=== PATIENT | female | born 1935 ===

== ENCOUNTER 2016-12-03 16:28 | Inpatient (IN) | payer MEDICAID, OTHER ==
[2016-12-03 16:41] VITALS: BMI 18.8
--- NOTE | 2016-12-03 16:51 | ED PDOC ---
Arrival/HPI - General Time Seen by Provider: 12/03/16 16:42 Historian: Patient - History of Present Illness Narrative History of Present Illness (Text): 12/03/16 16:42 81 y/o female, pmh including dm, nkda, bib daughter c/o rt. ankle wound which has not been healing for the past 3 weeks. Pt. stated that she had a varicose being which she was picked on abut couple months ago on the rt. ankle, healing well but she pick on it again about 3 weeks ago, not healing well, noticed more redness on the surrounding, no fever or chills, no night sweat, no dizziness, no other medical or psychological complaints. Past Medical History - Provider Review Nursing Documentation Reviewed: Yes - Tetanus Immunization Tetanus Immunization: Up to Date - Cardiac Hx Hypertension: Yes - Psychiatric Hx Depression: No Hx Emotional Abuse: No Hx Physical Abuse: No Hx Substance Use: No - Suicidal Assessment Feels Threatened In Home Enviroment: No Family/Social History - Physician Review Nursing Documentation Reviewed: Yes Family/Social History: Unknown Family HX Hx Alcohol Use: No Hx Substance Use: No Hx Substance Use Treatment: No Allergies/Home Meds Allergies/Adverse Reactions: Allergies No Known Allergies Allergy (Verified 12/03/16 16:43) Home Medications: Home Meds Medication Instructions Recorded Confirmed Insulin Detemir [Levemir] 12 units SC HS 12/03/16 12/03/16 Review of Systems - Review of Systems Constitutional: absent: Fatigue, Fevers Eyes: absent: Vision Changes ENT: absent: Hearing Changes Respiratory: absent: SOB, Cough Cardiovascular: absent: Chest Pain Gastrointestinal: absent: Abdominal Pain, Nausea, Vomiting Musculoskeletal: Arthralgias. absent: Back Pain, Neck Pain, Joint Swelling Skin: Rash, Skin Lesions, Cellulitis. absent: Pruritis, Laceration, Abscess, Ulcer Neurological: absent: Headache, Dizziness Physical Exam Vital Signs Reviewed: Yes Vital Signs Temp Pulse Resp BP Pulse Ox 12/03/16 21:09 98.5 F 78 17 148/85 98 12/03/16 20:31 98.8 F 78 17 143/74 96 12/03/16 16:40 98.8 F 84 19 175/83 H 97 Temperature: Afebrile Blood Pressure: Hypertensive Pulse: Regular Respiratory Rate: Normal Appearance: Positive for: Well-Appearing, Non-Toxic, Comfortable Pain Distress: Mild Mental Status: Positive for: Alert and Oriented X 3 - Systems Exam Head: Present: Atraumatic, Normocephalic Pupils: Present: PERRL Extroacular Muscles: Present: EOMI Conjunctiva: Present: Normal Mouth: Present: Moist Mucous Membranes Neck: Present: Normal Range of Motion Respiratory/Chest: Present: Clear to Auscultation, Good Air Exchange. No: Respiratory Distress, Accessory Muscle Use Cardiovascular: Present: Regular Rate and Rhythm, Normal S1, S2. No: Murmurs Abdomen: Present: Normal Bowel Sounds. No: Tenderness, Distention, Peritoneal Signs Back: Present: Normal Inspection Upper Extremity: Present: Normal Inspection. No: Cyanosis, Edema Lower Extremity: Present: Normal Inspection, Other (RLE: medial aspect of the ankle visible stage III pressure ulcer approx. [id number] noted with erythematous noted surrounding with early signs of cellulitis noted streaking up to the calf region, negative donovan and ramsey signs, FROM without limitation, sensation intact, motor 5/5, +DPPT pulses, capillary refill< 2 seconds, neurovascular intact. ). No: Edema Neurological: Present: GCS=15, CN II-XII Intact, Speech Normal Skin: Present: Warm, Dry, Normal Color. No: Rashes Psychiatric: Present: Alert, Oriented x 3, Normal Insight, Normal Concentration Medical Decision Making ED Course and Treatment: 12/03/16 16:57 -labs -LLE venuous doppler -lt. ankle xray 12/03/16 19:28 -labs are non-significant except glucose 310, insulin 6 units IV ordered. -RLE Venuous doppler: as per preliminary report, no acute DVT -Chest x-ray: no active disease -Rt. ankle xray: no osteolytic changes. -wound culture obtained by me. Ulcer irrigated by saline, clean with betadine, xerofoam and gauze dressing by me. -Pt. has no pmd and no follow up, poorly wound ankle ulcer and now it's infected , will need to be admitted. -Case discussed with Dr. Juan, agreed on the admission. -cco & president and the hospitalist paged. 12/03/16 19:39 -I spoke to the medical administrative technician and Dr. Ramos, discussed about the case/labs/ radiology result, agreed on the admission and follow up on the patient. -Pt. agreed to be admitted. - Lab Interpretations Microbiology Results: Microbiology Results 12/03/16 18:55 Ankle - Right Wound Culture - Preliminary NO GROWTH AFTER 24 HOURS 12/03/16 17:15 Blood-Venous Blood Culture - Preliminary NO GROWTH AFTER 24 HOURS 12/03/16 17:15 Blood-Venous Blood Culture - Preliminary NO GROWTH AFTER 24 HOURS Lab Results: 12/03/16 17:00 12/03/16 17:15 Lab Results 12/03/16 17:15: Sodium 140, Potassium 4.6, Chloride 99, Carbon Dioxide 29, Anion Gap 17, BUN 11, Creatinine 0.7, Est GFR ( Amer) > 60, Est GFR (Non- Af Amer) > 60, Random Glucose 310 H*, Calcium 10.2, Total Bilirubin 0.4, AST 18 , ALT 22, Alkaline Phosphatase 106, Total Protein 7.5, Albumin 4.4, Globulin 3.1 , Albumin/Globulin Ratio 1.4 12/03/16 17:00: WBC 6.1, RBC 4.50, Hgb 13.2, Hct 38.2, MCV 84.9, MCH 29.3, MCHC 34.6, RDW 12.9, Plt Count 241, MPV 10.9, Gran % 53.9, Lymph % (Auto) 34.9, Potter % (Auto) 9.1 H, Eos % (Auto) 1.8, Baso % (Auto) 0.3, Gran # 3.31, Lymph # 2.1, Potter # 0.6, Eos # 0.1, Baso # 0.02 Interpretation: Abnormal lab values (glucose 310) - RAD Interpretation Radiology Orders: 12/03/16 16:51 ANKLE RIGHT 3 VIEWS ROUTINE [RAD] Stat DUPLEX LOWER EXTRM VEIN RIGHT [US] Stat 12/03/16 16:58 CHEST ONE VIEW [RAD] Stat Chest xray: no infiltrate/effusion/pneumothorax Rt. ankle xray: visible lucency around the rt. ankle, +ostepenia appearance RLE Venuous doppler: as per preliminary report, no acute dvt. Facilities Officer: Radiologist - Medication Orders Current Medication Orders: Heparin Sodium (Porcine) (Heparin) 5,000 units SC Q12 CARYN PRN Reason: Protocol Last Admin: 12/04/16 21:50 Dose: 5,000 units Subcutaneous Administrations Document 12/04/16 21:50 BR (Rec: 12/05/16 01:15 [id number]) Charges for Administration # of Subcutaneous Administrations 1 Vancomycin HCl (Vancomycin 1gm) 1 gm in 250 mls @ 167 mls/hr IVPB Q12 CARYN PRN Reason: Protocol Last Admin: 12/04/16 21:50 Dose: 167 mls/hr eMAR Start Stop Document 12/04/16 21:50 BR (Rec: 12/05/16 01:17 [id number]) Intravenous Solution Start Date 12/05/16 Start Time 21:50 End Date 12/05/16 End time 23:20 Total Infusion Time 90 Ampicillin Sodium/Sulbactam Sodium (Unasyn 1 Gm-0.5 Gm) 1 gm in 100 mls @ 100 mls/hr IVPB Q6 CARYN PRN Reason: Protocol Last Admin: 12/05/16 06:20 Dose: 100 mls/hr eMAR Start Stop Document 12/05/16 06:20 BR (Rec: 12/05/16 06:20 [id number]) Intravenous Solution Start Date 12/05/16 Start Time 06:20 End Date 12/05/16 End time 07:20 Total Infusion Time 60 Insulin Detemir (Levemir) 12 unit SC HS CARYN Last Admin: 12/04/16 21:50 Dose: 12 unit MAR Blood Glucose Document 12/04/16 21:50 BR (Rec: 12/05/16 01:16 [id number]) Blood Glucose Finger Stick Blood Glucose (70-120) 255 Subcutaneous Administrations Document 12/04/16 21:50 BR (Rec: 12/05/16 01:16 [id number]) Charges for Administration # of Subcutaneous Administrations 1 Insulin Human Regular (Humulin R Med) 0 units SC ACHS CARYN PRN Reason: Protocol Last Admin: 12/04/16 21:50 Dose: Not Given Non-Admin Reason: Blood Sugar Parameter MAR Blood Glucose Document 12/04/16 21:50 BR (Rec: 12/05/16 01:16 [id number]) Blood Glucose Finger Stick Blood Glucose (70-120) 255 Discontinued Medications Hydralazine HCl (Apresoline) 10 mg IVP ONCE ONE Stop: 12/04/16 07:55 Last Admin: 12/04/16 08:32 Dose: 10 mg IVP Administration Document 12/04/16 08:32 TW (Rec: 12/04/16 08:32 TW [id number]) Charges for Administration # of IVP Administrations 1 MAR Pulse and Blood Pressure Document 12/04/16 08:32 TW (Rec: 12/04/16 08:32 TW [id number]) Pulse Pulse Rate (60-90) 88 Blood Pressure Blood Pressure (100/60-150/90) 140/80 Vancomycin HCl (Vancomycin 1gm) 1 gm in 250 mls @ 167 mls/hr IVPB STAT STA PRN Reason: Protocol Stop: 12/03/16 20:10 Last Admin: 12/03/16 19:30 Dose: 167 mls/hr eMAR Start Stop Document 12/03/16 19:30 IT (Rec: 12/03/16 19:34 IT [id number]) Intravenous Solution Start Date 12/03/16 Start Time 19:33 End Date 12/03/16 End time 21:05 Total Infusion Time 92 Piperacillin Sod/Tazobactam Sod (Zosyn 3.375 In Ns 100ml) 100 mls @ 200 mls/hr IVPB STAT STA PRN Reason: Protocol Stop: 12/03/16 19:10 Last Admin: 12/03/16 18:53 Dose: 200 mls/hr eMAR Start Stop Document 12/03/16 18:53 IT (Rec: 12/03/16 18:56 IT [id number]) Intravenous Solution Start Date 12/03/16 Start Time 18:56 End Date 12/03/16 End time 19:20 Total Infusion Time 24 Vancomycin HCl (Vancomycin 1gm) 1 gm in 250 mls @ 167 mls/hr IVPB DAILY CARYN PRN Reason: Protocol Piperacillin Sod/Tazobactam Sod (Zosyn 3.375 In Ns 100ml) 100 mls @ 200 mls/hr IVPB Q6 CARYN PRN Reason: Protocol Stop: 12/04/16 06:29 Last Admin: 12/04/16 06:30 Dose: 200 mls/hr eMAR Start Stop Document 12/04/16 06:30 KT (Rec: 12/04/16 06:30 KT [id number]) Intravenous Solution Start Date 12/04/16 Start Time 06:30 End Date 12/04/16 End time 07:00 Total Infusion Time 30 Insulin Human Regular (Humulin R) 6 units IV STAT STA Stop: 12/03/16 18:04 Last Admin: 12/03/16 18:12 Dose: 6 units eMAR Start Stop Document 12/03/16 18:12 IT (Rec: 12/03/16 18:13 IT [id number]) Intravenous Solution Start Date 12/03/16 Start Time 18:13 End Date 12/03/16 - PA / STEP DOWN NURSE / Resident Statement / has reviewed & agrees with the documentation as recorded. Disposition/Present on Arrival - Present on Arrival Any Indicators Present on Arrival: No History of DVT/PE: No History of Uncontrolled Diabetes: No Urinary Catheter: No History of Decub. 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
[2016-12-03 17:45] LABS: BASO # 0.02 K/mm3 (0.0-2.0); BASO % 0.3 % (0.0-3.0); EOS # 0.1 (0.0-0.7); EOS % 1.8 % (1.5-5.0); GRAN # 3.31 (1.4-6.5); GRAN % 53.9 % (50.0-68.0); HEMATOCRIT 38.2 % (36.0-48.0); LYMPH # 2.1 (1.2-3.4); LYMPH % 34.9 % (22.0-35.0); MEAN CELL VOLUME 84.9 fl (80.0-105.0); MEAN CORPUSCULAR HEMOGLOBIN 29.3 pg (25.0-35.0); MEAN CORPUSCULAR HGB CONC 34.6 g/dl (31.0-37.0); MEAN PLATELET VOLUME 10.9 fl (7.0-11.0); MONO # 0.6 (0.1-0.6); MONO % 9.1 % (1.0-6.0); RED CELL DISTRIBUTION WIDTH 12.9 % (11.5-14.5); WHITE BLOOD COUNT 6.1 10^3/ul (4.5-11.0)
[2016-12-03 17:48] LABS: ALB/GLOB RATIO 1.4 (1.1-1.8); ALKALINE PHOSPHATASE 106 U/L (38-126); ALT/SGPT 22 U/L (7-56); AST/SGOT 18 U/L (14-36); BILIRUBIN,TOTAL 0.4 mg/dL (0.2-1.3); BLOOD UREA NITROGEN 11 mg/dL (7-21); CALCIUM 10.2 mg/dL (8.4-10.5); CARBON DIOXIDE 29 mmol/L (21-33); CHLORIDE 99 mmol/L (98-107); GFR AFRICAN-AMERICAN > 60; POTASSIUM 4.6 mmol/L (3.6-5.0); SODIUM 140 mmol/L (132-148); TOTAL PROTEIN 7.5 g/dL (5.8-8.3)
[2016-12-03 17:54] LABS: GLUCOSE,RANDOM 310 mg/dL (70-110)
[2016-12-03] MEDS ORDERED: Insulin Regular 1 UNITS/0.01 ML ML IV STA (18:03)
--- NOTE | 2016-12-03 18:36 | US ---
PROCEDURE: Right lower extremity venous US HISTORY: Leg pain and swelling. Evaluate for DVT. PHYSICIAN(S): Gokul Vargas M.D. TECHNIQUE: Duplex sonography and color-flow Doppler with graded compression were used to evaluate the deep venous system of the right lower extremity. FINDINGS: The visualized deep venous system of the right lower extremity is sonographically normal and compressible. Normal waveforms and augmentation are seen. There is no sonographic evidence for deep venous thrombosis in the visualized segments of the right lower extremity. IMPRESSION: 1. No sonographic evidence for deep venous thrombosis in the visualized segments of the right lower extremity.
[2016-12-03] MEDS ORDERED: Piperacillin/Tazobact 3.375 gm 100 ML IVPB STA (18:41)
[2016-12-03] MEDS ORDERED: Vancomycin 1gm in NS 250ml 1 GM/250 ML BAG IVPB STA (18:41)
[2016-12-04] MEDS: Piperacillin/Tazobact 3.375 gm 100 ML IVPB SCH ×2 (01:19→06:30)
--- NOTE | 2016-12-04 04:33 | CP.PCM.HP ---
<Tima Garcia - Last Filed: 12/04/16 04:44> History of Present Illness - History of Present Illness History of Present Illness: Chief Complaint Right Medial Malleolus ulcer HPI Patient is an 81 year old female visiting from the [place] with a past medical history of IDDM on 12 IU Levemir qD who [place] [facility] [place] with complaints of right sided medial malleolus which has been present since 06/2016. Patient states she was following up with her physician in her country regarding the wound. With time the wound would heal however according to patients family, she has a habit of picking at the scabs of the wound whenever the wound is not covered. Patient states that the wound with time increased in diameter and depth in the past 15 days. She admits to pain in the surrounding area but not at the wound directly. She denies pain radiation, n/v/f /c, shortness of breath, chest pain. PMD: does not have in [place] Allergies: NKDA SHx: None Present on Admission - Present on Admission Any Indicators Present on Admission: No Review of Systems - Review of Systems Systems not reviewed;Unavailable: Acuity of Condition - Constitutional Constitutional: absent: Anorexia, Chills, Fever, Headache, Weight Loss - EENT Eyes: absent: Blurred Vision, Change in Vision - Cardiovascular Cardiovascular: absent: Chest Pain, Dyspnea - Respiratory Respiratory: absent: Cough, Dyspnea - Gastrointestinal Gastrointestinal: absent: Abdominal Pain, Nausea, Vomiting - Genitourinary Genitourinary: absent: Difficulty Urinating, Dysuria - Neurological Neurological: absent: Dizziness, Headaches - Psychiatric Psychiatric: absent: Anxiety, Confusion - Endocrine Endocrine: absent: Fatigue Past Patient History - Infectious Disease Hx of Infectious Diseases: None - Tetanus Immunizations Tetanus Immunization: Up to Date - Past Social History Smoking Status: Never Smoked - CARDIAC Hx Hypertension: Yes - PULMONARY Hx Respiratory Disorders: No - NEUROLOGICAL Hx Neurological Disorder: No - HEENT Hx HEENT Problems: No - RENAL Hx Chronic Kidney Disease: No - ENDOCRINE/METABOLIC Hx Endocrine Disorders: Yes Hx Diabetes Mellitus Type 2: Yes - HEMATOLOGICAL/ONCOLOGICAL Hx Blood Disorders: No - INTEGUMENTARY Hx Melanoma: No - MUSCULOSKELETAL/RHEUMATOLOGICAL Hx Rheumatoid Arthritis: No - GASTROINTESTINAL Hx Fatty Liver Disease: No - GENITOURINARY/GYNECOLOGICAL Hx Bladder Cancer: No - PSYCHIATRIC Hx Depression: No Hx Emotional Abuse: No Hx Physical Abuse: No Hx Substance Use: No - SURGICAL HISTORY Hx Herniorrhaphy: No - ANESTHESIA Hx Anesthesia: No Meds Allergies/Adverse Reactions: Allergies Allergy/AdvReac Type Severity Reaction Status Date / Time No Known Allergies Allergy Verified 12/03/16 16:43 Physical Exam - Constitutional Appears: Well - Head Exam Head Exam: ATRAUMATIC, NORMAL INSPECTION, NORMOCEPHALIC - Eye Exam Eye Exam: EOMI, Normal appearance - ENT Exam ENT Exam: Mucous Membranes Moist, Normal Exam - Neck Exam Neck exam: Positive for: Normal Inspection - Respiratory Exam Respiratory Exam: Clear to Auscultation Bilateral, NORMAL BREATHING PATTERN - Cardiovascular Exam Cardiovascular Exam: REGULAR RHYTHM, +S1, +S2 - GI/Abdominal Exam GI & Abdominal Exam: Normal Bowel Sounds, Soft - Extremities Exam Additional comments: RLE: medial aspect of the ankle visible stage III pressure ulcer approx. 4x3cm, FROM without limitation, sensation intact, motor 5/5, +DPPT pulses - Skin Skin Exam: Erythema, Warm Results - Vital Signs Recent Vital Signs: Last Vital Signs Temp 98.2 F 12/04/16 00:05 Pulse 74 12/04/16 00:05 Resp 20 12/04/16 00:05 BP 137/74 12/04/16 00:05 Pulse Ox 97 12/04/16 00:05 - Labs Result Diagrams: 12/03/16 17:00 12/03/16 17:15 Labs: Laboratory Results - last 24 hr 12/03/16 12/04/16 21:35 02:03 POC Glucose (mg/dL) 201 H 194 H Assessment & Plan - Assessment and Plan (Free Text) Plan: Assessment 81 year old female with cellulitus of right medial malleolus Plan 1. Cellulitus - Vancomycin 1 gm - Zosyn 3.375 gm - Blood and Wound culture results pending - Ankle X-Ray- results pending - Right LE venous Doppler- negative for DVT - Podiatry consult - Wound assessment 2. IDDM - Insulin Reg Med SC - Levemir 12 IU ACHS - Carb Controlled Diet DVT prophylaxis -Heparin 5000 IU q12 <Ana Ramos - Last Filed: 12/04/16 06:30> Results - Vital Signs Recent Vital Signs: Last Vital Signs Temp 98.2 F 12/04/16 00:05 Pulse 74 12/04/16 00:05 Resp 20 12/04/16 00:05 BP 137/74 12/04/16 00:05 Pulse Ox 97 12/04/16 00:05 - Labs Result Diagrams: 12/03/16 17:00 12/03/16 17:15 Labs: Laboratory Results - last 24 hr 12/03/16 12/04/16 21:35 02:03 POC Glucose (mg/dL) 201 H 194 H Attending/Attestation - Attestation I have personally seen and examined this patient.: Yes I have fully participated in the care of the patient.: Yes I have reviewed all pertinent clinical information: Yes Notes (Text): 12/04/16 06:30 agree with history, physical examination, assessment and plan.
--- NOTE | 2016-12-04 07:38 | RAD ---
PROCEDURE: Right Ankle Radiographs. HISTORY: rt. ankle medial wound x 1 month COMPARISON: None FINDINGS: BONES: Diffuse osteopenia suggests osteoporosis. No periosteal reaction or bone lysis is identified including at the level of the apparent medial upper right ankle soft tissue ulceration. Diffuse opacity is cyst is seen in the local soft tissues relative to this lucent defect. JOINTS: Normal. Mild osteoarthritis. Ankle mortise maintained. Talar dome intact SOFT TISSUES: Normal. OTHER FINDINGS: None. IMPRESSION: 1. A lucent defect seen in the medial upper right ankle soft tissues suggestive of an ulcer. No local bony changes are seen corresponding to this finding. MRI is available follow-up if clinically warranted, which is more sensitive for osteomyelitis. 2. Diffuse osteopenia suggests osteoporosis. Limited degenerate joint change appreciate without fracture, subluxation or dislocation.
--- NOTE | 2016-12-04 07:40 | RAD ---
PROCEDURE: CHEST RADIOGRAPH, 1 VIEW HISTORY: medical clearance COMPARISON: None available. FINDINGS: LUNGS: No acute airspace disease appreciate bilaterally. Reticular markings somewhat increased at the bases bilaterally which appear nonspecific. This may be related bronchovascular overlap from sub optimal inspiratory volume. PLEURA: No pneumothorax or pleural fluid seen. CARDIOVASCULAR: Normal. OSSEOUS STRUCTURES: No significant abnormalities. VISUALIZED UPPER ABDOMEN: Normal. OTHER FINDINGS: None. IMPRESSION: No acute alveolar infiltrate pleural effusion or pneumothorax identified.
[2016-12-04] MEDS: Insulin Reg-MEDIUM-Coverage SC SCH ×4 (08:32→21:50)
--- NOTE | 2016-12-04 09:13 | CARD ---
APPROVED REPORT EKG Measurement Heart [id number] 150P12 [id number] <Conclusion> Normal sinus rhythm LAD Mildly Prolonged QTc
[2016-12-04 09:25] LABS: BASO # 0.03 K/mm3 (0.0-2.0); BASO % 0.5 % (0.0-3.0); EOS # 0.1 (0.0-0.7); EOS % 1.1 % (1.5-5.0); GRAN # 3.85 (1.4-6.5); GRAN % 61.5 % (50.0-68.0); HEMATOCRIT 38.6 % (36.0-48.0); LYMPH # 1.8 (1.2-3.4); LYMPH % 28.9 % (22.0-35.0); MEAN CELL VOLUME 84.1 fl (80.0-105.0); MEAN CORPUSCULAR HEMOGLOBIN 29.6 pg (25.0-35.0); MEAN CORPUSCULAR HGB CONC 35.2 g/dl (31.0-37.0); MEAN PLATELET VOLUME 10.2 fl (7.0-11.0); MONO # 0.5 (0.1-0.6); RED CELL DISTRIBUTION WIDTH 12.8 % (11.5-14.5); WHITE BLOOD COUNT 6.3 10^3/ul (4.5-11.0)
[2016-12-04 09:37] LABS: ALB/GLOB RATIO 1.3 (1.1-1.8); ALKALINE PHOSPHATASE 82 U/L (38-126); ALT/SGPT 19 U/L (7-56); AST/SGOT 20 U/L (14-36); BILIRUBIN,TOTAL 0.7 mg/dL (0.2-1.3); BLOOD UREA NITROGEN 10 mg/dL (7-21); CALCIUM 9.7 mg/dL (8.4-10.5); CARBON DIOXIDE 26 mmol/L (21-33); CHLORIDE 103 mmol/L (98-107); GFR AFRICAN-AMERICAN > 60; GLUCOSE,RANDOM 260 mg/dL (70-110); SODIUM 141 mmol/L (132-148); TOTAL PROTEIN 7.4 g/dL (5.8-8.3)
[2016-12-04] MEDS ORDERED: Vancomycin 1gm in NS 250ml 1 GM/250 ML BAG IVPB SCH (10:00)
[2016-12-04] MEDS: Vancomycin 1gm in NS 250ml 1 GM/250 ML BAG IVPB SCH ×2 (10:30→21:50)
--- NOTE | 2016-12-04 14:47 | CP.PCM.CON ---
History of Present Illness - History of Present Illness History of Present Illness: 81 year old female with PMH of DM was brought in to [facility] because of worsening ulcer on her right malleolar area. She apparently has had this ulcer for many years, at times it would heal up, then get worse again. She comes from the [place] and has been here in the [place] since [place]. She would have a habit of picking on the ulcer with her fingers and fingernails. She denies soaking her feet in water, has occasional contacts with dogs, no fever or chills, no nausea or vomiting, no chest pain, no SOB, no headache or dizziness, no diarrhea, no dysuria. Infectious Diseases consult is requested to further evaluate and manage. Review of Systems - Review of Systems All systems: reviewed and no additional remarkable complaints except (as per HPI ) Past Patient History - Infectious Disease Hx of Infectious Diseases: None - Tetanus Immunizations Tetanus Immunization: Up to Date - Past Social History Smoking Status: Never Smoked - CARDIAC Hx Hypertension: Yes - PULMONARY Hx Respiratory Disorders: No - NEUROLOGICAL Hx Neurological Disorder: No - HEENT Hx HEENT Problems: No - RENAL Hx Chronic Kidney Disease: No - ENDOCRINE/METABOLIC Hx Endocrine Disorders: Yes Hx Diabetes Mellitus Type 2: Yes - HEMATOLOGICAL/ONCOLOGICAL Hx Blood Disorders: No - INTEGUMENTARY Hx Melanoma: No - MUSCULOSKELETAL/RHEUMATOLOGICAL Hx Rheumatoid Arthritis: No - GASTROINTESTINAL Hx Fatty Liver Disease: No - GENITOURINARY/GYNECOLOGICAL Hx Bladder Cancer: No - PSYCHIATRIC Hx Depression: No Hx Emotional Abuse: No Hx Physical Abuse: No Hx Substance Use: No - SURGICAL HISTORY Hx Herniorrhaphy: No - ANESTHESIA Hx Anesthesia: No Meds Allergies/Adverse Reactions: Allergies Allergy/AdvReac Type Severity Reaction Status Date / Time No Known Allergies Allergy Verified 12/03/16 16:43 - Medications Medications: Current Medications Heparin Sodium (Porcine) (Heparin) 5,000 units SC Q12 CARYN PRN Reason: Protocol Vancomycin HCl (Vancomycin 1gm) 1 gm in 250 mls @ 167 mls/hr IVPB DAILY CARYN PRN Reason: Protocol Insulin Detemir (Levemir) 12 unit SC HS CARYN Insulin Human Regular (Humulin R Med) 0 units SC ACHS CARYN PRN Reason: Protocol Last Admin: 12/04/16 08:32 Dose: 1 units Physical Exam - Constitutional Appears: Non-toxic, No Acute Distress - Head Exam Head Exam: NORMAL INSPECTION - ENT Exam ENT Exam: Mucous Membranes Moist - Neck Exam Neck exam: Negative for: Lymphadenopathy, Meningismus - Respiratory Exam Respiratory Exam: Decreased Breath Sounds - Cardiovascular Exam Cardiovascular Exam: +S1, +S2 - GI/Abdominal Exam GI & Abdominal Exam: Soft. absent: Tenderness - Extremities Exam Additional comments: right medial malleolar area with open ulcer with serosanguinous material Results - Vital Signs Recent Vital Signs: Last Vital Signs Temp 98.8 F 12/04/16 07:30 Pulse 88 12/04/16 08:32 Resp 20 12/04/16 07:30 BP 140/80 12/04/16 08:32 Pulse Ox 97 12/04/16 07:30 - Labs Result Diagrams: 12/04/16 08:35 12/04/16 08:35 Labs: Laboratory Results - last 24 hr 12/03/16 12/04/16 12/04/16 21:35 02:03 07:17 POC Glucose (mg/dL) 201 H 194 H 197 H Assessment & Plan - Assessment and Plan (Free Text) Plan: Assessment Right medial malleolar infected diabetic ulcer R/O osteomyelitis DM Plan started patient on Vancomycin and Unasyn pending blood and wound cx; follow up ESR, CRP, GLADYS's, MRI of the right foot follow up Podiatry evaluation and recommendations will monitor clinically
--- NOTE | 2016-12-04 18:27 | US ---
PROCEDURE: Lower extremity GLADYS exam HISTORY: Peripheral vascular disease with pain and right ankle ulceration PHYSICIAN(S): Gokul Vargas MD. FINDINGS: The resting GLADYS's are normal: right, 1.20and left, 1.19. The brachial systolic pressures are symmetric. The high thigh pressures and waveforms are relatively normal. The calf PVR waveforms augment normally. No significant gradients are noted across the thighs. The ankle and metatarsal waveforms are relatively normal and symmetric. No significant pressure gradients are noted across the lower legs. IMPRESSION: 1. Normal GLADYS and PVR examination at rest.
[2016-12-04] MEDS: Insulin Detemir 100 units/ml Vial (Levemir) SC SCH (21:50)
[2016-12-05] MEDS: Insulin Reg-MEDIUM-Coverage SC SCH ×2 (08:30→17:28)
[2016-12-05] MEDS ORDERED: Gadodiamide 287 MG/ML VIAL (15ML) IV ONE (08:58)
[2016-12-05] MEDS: Vancomycin 1gm in NS 250ml 1 GM/250 ML BAG IVPB SCH ×2 (10:22→21:54)
[2016-12-05 10:36] LABS: BASO # 0.02 K/mm3 (0.0-2.0); BASO % 0.3 % (0.0-3.0); EOS # 0.1 (0.0-0.7); EOS % 1.3 % (1.5-5.0); GRAN # 4.13 (1.4-6.5); GRAN % 69.7 % (50.0-68.0); HEMATOCRIT 40.3 % (36.0-48.0); LYMPH # 1.2 (1.2-3.4); LYMPH % 20.1 % (22.0-35.0); MEAN CELL VOLUME 85.6 fl (80.0-105.0); MEAN CORPUSCULAR HEMOGLOBIN 29.1 pg (25.0-35.0); MEAN PLATELET VOLUME 10.3 fl (7.0-11.0); MONO # 0.5 (0.1-0.6); MONO % 8.6 % (1.0-6.0); RED CELL DISTRIBUTION WIDTH 13.2 % (11.5-14.5); WHITE BLOOD COUNT 5.9 10^3/ul (4.5-11.0)
[2016-12-05 10:44] LABS: ALB/GLOB RATIO 1.3 (1.1-1.8); ALKALINE PHOSPHATASE 78 U/L (38-126); ALT/SGPT 20 U/L (7-56); AST/SGOT 54 U/L (14-36); BILIRUBIN,TOTAL 0.4 mg/dL (0.2-1.3); BLOOD UREA NITROGEN 11 mg/dL (7-21); CARBON DIOXIDE 25 mmol/L (21-33); CHLORIDE 104 mmol/L (98-107); GFR AFRICAN-AMERICAN > 60; GLUCOSE,RANDOM 146 mg/dL (70-110); POTASSIUM 4.5 mmol/L (3.6-5.0); SODIUM 142 mmol/L (132-148); TOTAL PROTEIN 7.6 g/dL (5.8-8.3)
--- NOTE | 2016-12-05 13:03 | MRI ---
PROCEDURE: MRI of the right foot with and without contrast HISTORY: rule out osteomyelitis COMPARISON: Comparison is made to the previous x-ray dated 12/03/2016 P TECHNIQUE: Axial coronal and sagittal MRI images of the right foot were obtained before and after IV contrast administration FINDINGS: There is heterogeneous foci of bone marrow edema at the distal right fibula laterally/ lateral malleolus without evidence of significant cortical destruction to suggest osteomyelitis. There is also focal subcortical bone marrow edema at the lateral posterior aspect of the right calcaneus bone without evidence of cortical destruction or significant enhancement. Findings may represent bone marrow reaction or bone marrow contusion due to recent trauma. The possibility of osteomyelitis is less likely but not totally excluded. No evidence of osteomyelitis or bone marrow edema at the medial aspect of the right ankle and right foot. No evidence of abscess formation or fluid collection. Mild soft tissue edema seen around the right ankle and proximal right foot. Otherwise the rest of the visualized osseous structures demonstrate no bone marrow edema or cortical destruction. The visualized portion of the plantaris fascia is intact. IMPRESSION: Foci of bone marrow edema at the lateral malleolus and posterior lateral aspect of the calcaneus bone without evidence of adjacent cortical destruction or significant enhancement. Findings may represent reactive bone marrow edema or bone marrow contusion. The possibility of osteomyelitis is less likely but not totally excluded.
--- NOTE | 2016-12-05 17:26 | CP.PCM.PN ---
<DarrellAdrianan - Last Filed: 12/05/16 17:29> Subjective - Date & Time of Evaluation Date of Evaluation: 12/05/16 Time of Evaluation: 08:23 - Subjective Subjective: Patient was seen and examined at bedside. The patient reports feeling better and still reports no pain at were the ulcer is located. The patient denies any chest pain, shortness of breath, lightheadedness, dizziness, abdominal pain, constipation, diarrhea, sore throat, or any other complaints. Objective - Vital Signs/Intake and Output Vital Signs (last 24 hours): Temp Pulse Resp BP Pulse Ox 98.9 F 72 20 141/83 99 12/05/16 08:16 12/05/16 08:16 12/05/16 08:16 12/05/16 08:16 12/05/16 08:16 Intake and Output: 12/05/16 12/05/16 06:59 18:59 Intake Total 720 480 Balance 720 480 - Medications Medications: Current Medications Heparin Sodium (Porcine) (Heparin) 5,000 units SC Q12 CARYN PRN Reason: Protocol Last Admin: 12/05/16 10:22 Dose: 5,000 units Vancomycin HCl (Vancomycin 1gm) 1 gm in 250 mls @ 167 mls/hr IVPB Q12 ACRYN PRN Reason: Protocol Last Admin: 12/05/16 10:22 Dose: 167 mls/hr Ampicillin Sodium/Sulbactam Sodium (Unasyn 1 Gm-0.5 Gm) 1 gm in 100 mls @ 100 mls/hr IVPB Q6 CARYN PRN Reason: Protocol Last Admin: 12/05/16 15:22 Dose: 100 mls/hr Insulin Detemir (Levemir) 12 unit SC HS [facility] Last Admin: 12/04/16 21:50 Dose: 12 unit Insulin Human Regular (Humulin R Med) 0 units SC ACHS CARYN PRN Reason: Protocol Last Admin: 12/05/16 08:30 Dose: Not Given - Labs Labs: 12/05/16 10:25 12/05/16 10:25 - Head Exam Head Exam: ATRAUMATIC, NORMAL INSPECTION, NORMOCEPHALIC - Eye Exam Eye Exam: EOMI, Normal appearance, PERRL. absent: Periorbital tenderness Pupil Exam: NORMAL ACCOMODATION, PERRL. absent: Irregular, Unequal - ENT Exam ENT Exam: Mucous Membranes Moist, Normal Exam - Neck Exam Neck Exam: Normal Inspection. absent: Lymphadenopathy, Thyromegaly - Respiratory Exam Respiratory Exam: Clear to Ausculation Bilateral, NORMAL BREATHING PATTERN. absent: Accessory Muscle Use, Chest Wall Tenderness, Prolonged Expiratory Phase - Cardiovascular Exam Cardiovascular Exam: REGULAR RHYTHM, RRR, +S1, +S2. absent: Gallop, Rubs - GI/Abdominal Exam GI & Abdominal Exam: Soft, Normal Bowel Sounds - Extremities Exam Extremities Exam: Full ROM Additional comments: Right foot ulcer on the medial malleolus. - Back Exam Back Exam: NORMAL INSPECTION. absent: CVA tenderness (L), CVA tenderness (R), paraspinal tenderness - Neurological Exam Neurological Exam: Alert, Awake, CN II-XII Intact, Normal Gait, Oriented x3 - Psychiatric Exam Psychiatric exam: Normal Affect, Normal Mood - Skin Skin Exam: Dry, Intact Assessment and Plan - Assessment and Plan (Free Text) Assessment: 81 year old female with cellulitus of right medial malleolus Plan: 1. Cellulitus - Continue Vancomycin. - Continue Zosyn. - Blood and Wound culture results pending. Will f/u with rec's tomorrow. - Ankle X-Ray- showed lucent defect in the medial upper right ankle soft tissue suggestive of any ulcer. No bony changes are seen corresponding to this finding. Diffuse osteopenia suggest osteoporosis. Limited joint change appreciate without fracture, subluxation or dislocation. - Right LE venous Doppler- negative for DVT - Podiatry consult. Will f/u with rec's tomorrow -ID consult appreciated. - Wound assessment 2. IDDM - Continue Insulin Reg Med SC - Continue Levemir 12 IU ACHS - Carb Controlled Diet DVT prophylaxis -Heparin 5000 IU q12 <Sharee Vega - Last Filed: 12/05/16 20:29> Objective - Vital Signs/Intake and Output Vital Signs (last 24 hours): Temp Pulse Resp BP Pulse Ox 98.9 F 72 20 141/83 99 12/05/16 08:16 12/05/16 08:16 12/05/16 08:16 12/05/16 08:16 12/05/16 08:16 Intake and Output: 12/05/16 12/06/16 18:59 06:59 Intake Total 480 Balance 480 - Medications Medications: Current Medications Heparin Sodium (Porcine) (Heparin) 5,000 units SC Q12 CARYN PRN Reason: Protocol Last Admin: 12/05/16 10:22 Dose: 5,000 units Vancomycin HCl (Vancomycin 1gm) 1 gm in 250 mls @ 167 mls/hr IVPB Q12 CARYN PRN Reason: Protocol Last Admin: 12/05/16 10:22 Dose: 167 mls/hr Ampicillin Sodium/Sulbactam Sodium (Unasyn 1 Gm-0.5 Gm) 1 gm in 100 mls @ 100 mls/hr IVPB Q6 CARYN PRN Reason: Protocol Last Admin: 12/05/16 17:29 Dose: 100 mls/hr Insulin Detemir (Levemir) 12 unit SC HS CARYN Last Admin: 12/04/16 21:50 Dose: 12 unit Insulin Human Regular (Humulin R Med) 0 units SC ACHS CARYN PRN Reason: Protocol Last Admin: 12/05/16 17:28 Dose: 7 units - Labs Labs: 12/05/16 10:25 12/05/16 10:25 Attending/Attestation - Attestation I have personally seen and examined this patient.: Yes I have fully participated in the care of the patient.: Yes I have reviewed all pertinent clinical information, including history, physical exam and plan: Yes Notes (Text): 12/05/16 20:27 81 year old female with past medical history of diabetes who presented with right foot/ankle ulcer/cellulitis. Continue with iv antibiotics as per ID. Podiatry evaluation was requested as well. Ankle xray was reviewed as above. MRI of the foot was also done today; will review results with ID/podiatry. Continue with insulin ss and levemir for diabetes. Sharee Vega MD Hospitalist.
[2016-12-06] MEDS: Insulin Reg-MEDIUM-Coverage SC SCH ×5 (00:24→22:21)
[2016-12-06] MEDS: Insulin Detemir 100 units/ml Vial (Levemir) SC SCH ×2 (00:25→22:22)
[2016-12-06] MEDS: Vancomycin 1gm in NS 250ml 1 GM/250 ML BAG IVPB SCH (10:43)
--- NOTE | 2016-12-06 15:15 | PN ---
DATE: 12/06/2016 SUBJECTIVE: The patient is in bed, in no acute distress and nontoxic. PHYSICAL EXAMINATION: VITAL SIGNS: Temperature is 98,blood pressure is 130/80 and heart rate of 68. HEENT: Unremarkable. NECK: Supple. LUNGS: Decreased breath sounds. HEART: Normal S1 and S2. ABDOMEN: Soft and nontender. LABORATORY DATA: Reveals her white count is 5.9, hemoglobin of 13, platelets of 232 and 69% granulocytosis. BUN of 11 and creatinine of 0.7. Microbiology reveals the blood cultures are negative and the right ankle cultures are no growth. The patient had an MRI of the foot which is consistent with no evidence of abscess formation or fluid collection without any cortical destruction to suggest osteomyelitis. ASSESSMENT AND PLAN: An 81-year-old female with right medial malleolar infected diabetic ulcer, negative MRI for osteomyelitis, negative blood cultures, negative ankle cultures, currently on vancomycin and ampicillin and sulbactam with a C-reactive protein of 0.98 and a sed rate of 20. Osteomyelitis is very unlikely. Would complete with p.o. antibiotics of Augmentin and doxycycline for soft tissue infection. Robles Rivera MD
[2016-12-06 17:26] VITALS: RESP 18
--- NOTE | 2016-12-06 19:05 | CP.PCM.PN ---
<Mannie Das - Last Filed: 12/06/16 18:57> Subjective - Date & Time of Evaluation Date of Evaluation: 12/06/16 Time of Evaluation: 11:00 - Subjective Subjective: Medicine progress note. Dr. Vega Pt seen and examined at bedside. Family at bedside. No acute events overnight. Patient in no acute distress. Comfortable. Right foot wound redressed with island dressing. No F/C. Objective - Vital Signs/Intake and Output Vital Signs (last 24 hours): Temp Pulse Resp BP Pulse Ox 98.5 F 78 18 145/75 98 12/06/16 16:00 12/06/16 16:00 12/06/16 16:00 12/06/16 16:00 12/06/16 16:00 Intake and Output: 12/06/16 12/06/16 06:59 18:59 Intake Total 480 480 Balance 480 480 - Medications Medications: Current Medications Heparin Sodium (Porcine) (Heparin) 5,000 units SC Q12 CARYN PRN Reason: Protocol Last Admin: 12/06/16 10:44 Dose: 5,000 units Vancomycin HCl (Vancomycin 1gm) 1 gm in 250 mls @ 167 mls/hr IVPB Q12 CARYN PRN Reason: Protocol Last Admin: 12/06/16 10:43 Dose: 167 mls/hr Ampicillin Sodium/Sulbactam Sodium (Unasyn 1 Gm-0.5 Gm) 1 gm in 100 mls @ 100 mls/hr IVPB Q6 CARYN PRN Reason: Protocol Last Admin: 12/06/16 17:29 Dose: 100 mls/hr Insulin Detemir (Levemir) 12 unit SC HS CARYN Last Admin: 12/06/16 00:25 Dose: 12 unit Insulin Human Regular (Humulin R Med) 0 units SC ACHS CARYN PRN Reason: Protocol Last Admin: 12/06/16 17:29 Dose: 3 units - Labs Labs: 12/05/16 10:25 12/05/16 10:25 - Constitutional Appears: Well, Non-toxic, No Acute Distress - Head Exam Head Exam: ATRAUMATIC, NORMAL INSPECTION, NORMOCEPHALIC - Eye Exam Eye Exam: EOMI, Normal appearance - ENT Exam ENT Exam: Mucous Membranes Moist - Neck Exam Neck Exam: Full ROM - Respiratory Exam Respiratory Exam: Clear to Ausculation Bilateral, NORMAL BREATHING PATTERN. absent: Decreased Breath Sounds, Rales, Rhonchi, Wheezes, Respiratory Distress - Cardiovascular Exam Cardiovascular Exam: RRR, +S1, +S2. absent: JVD - GI/Abdominal Exam GI & Abdominal Exam: Soft. absent: Distended, Firm, Guarding, Rigid, Tenderness - Extremities Exam Extremities Exam: absent: Calf Tenderness, Pedal Edema Additional comments: Right medial malleolus skin ulcer. Dressing clean, dry and intact. - Back Exam Back Exam: NORMAL INSPECTION - Neurological Exam Neurological Exam: Alert, Awake, Oriented x3 - Psychiatric Exam Psychiatric exam: Normal Affect, Normal Mood Assessment and Plan - Assessment and Plan (Free Text) Assessment: 81yo F with PMHx of DM, here with Right medial malleolus DM ulcer. 1. Diabetic ulcer right medial malleolus MRI negative for osteo ID following recommend treatment with PO Augmentin and Doxy x 5 days RLE Doppler - negative DVT Podiatry consult. Awaiting evaluation f/u Nursing wound care recs 2. Hx of DM Levemir 12U SC HS ISS Accuchecs 3. PPx Heparin Protonix Discussed case with Dr. Gary Das PGY1 <Sharee Vega - Last Filed: 12/07/16 07:21> Objective - Vital Signs/Intake and Output Vital Signs (last 24 hours): Temp Pulse Resp BP Pulse Ox 98.5 F 78 18 145/75 98 12/06/16 16:00 12/06/16 16:00 12/06/16 16:00 12/06/16 16:00 12/06/16 16:00 Intake and Output: 12/07/16 12/07/16 06:59 18:59 Intake Total 180 Balance 180 - Medications Medications: Current Medications Amoxicillin/Clavulanate Potassium (Augmentin 875 Mg-125 Mg Tab) 1 tab PO Q12 CARYN PRN Reason: Protocol Stop: 12/11/16 10:01 Last Admin: 12/06/16 22:37 Dose: 1 tab Doxycycline Hyclate (Doryx) 100 mg PO Q12 CARYN PRN Reason: Protocol Stop: 12/11/16 10:01 Last Admin: 12/07/16 00:54 Dose: 100 mg Heparin Sodium (Porcine) (Heparin) 5,000 units SC Q12 CARYN PRN Reason: Protocol Last Admin: 12/06/16 22:37 Dose: 5,000 units Insulin Detemir (Levemir) 12 unit SC HS CARYN Last Admin: 12/06/16 22:22 Dose: Not Given Insulin Human Regular (Humulin R Med) 0 units SC ACHS CARYN PRN Reason: Protocol Last Admin: 12/06/16 22:21 Dose: Not Given Pantoprazole Sodium (Protonix Ec Tab) 40 mg PO 0600 [facility] Last Admin: 12/07/16 05:28 Dose: 40 mg - Labs Labs: 12/05/16 10:25 12/05/16 10:25 Attending/Attestation - Attestation I have personally seen and examined this patient.: Yes I have fully participated in the care of the patient.: Yes I have reviewed all pertinent clinical information, including history, physical exam and plan: Yes Notes (Text): 12/06/16 81 year old female with past medical history of diabetes who presented with right foot/ankle ulcer/cellulitis. Ankle xray was reviewed. MRI is negative for osteomyelitis. Continue with antibiotics as per ID. Podiatry evaluation is pending. Continue with insulin ss and levemir for diabetes. Sharee Vega MD Hospitalist.
[2016-12-06] MEDS: Amoxicillin-Clav 875-125 mg Tab PO SCH (22:37)
[2016-12-07] MEDS ORDERED: Pantoprazole 40 mg EC Tab PO SCH (06:00)
[2016-12-07 07:22] LABS: BASO # 0.02 K/mm3 (0.0-2.0); BASO % 0.4 % (0.0-3.0); EOS # 0.3 (0.0-0.7); EOS % 6.4 % (1.5-5.0); GRAN # 2.62 (1.4-6.5); HEMATOCRIT 38.9 % (36.0-48.0); LYMPH # 1.9 (1.2-3.4); LYMPH % 35.6 % (22.0-35.0); MEAN CELL VOLUME 85.3 fl (80.0-105.0); MEAN CORPUSCULAR HEMOGLOBIN 28.7 pg (25.0-35.0); MEAN CORPUSCULAR HGB CONC 33.7 g/dl (31.0-37.0); MEAN PLATELET VOLUME 11.1 fl (7.0-11.0); MONO # 0.5 (0.1-0.6); MONO % 8.6 % (1.0-6.0); RED CELL DISTRIBUTION WIDTH 13.4 % (11.5-14.5); WHITE BLOOD COUNT 5.3 10^3/ul (4.5-11.0)
[2016-12-07 07:26] LABS: ALB/GLOB RATIO 1.2 (1.1-1.8); ALKALINE PHOSPHATASE 71 U/L (38-126); ALT/SGPT 24 U/L (7-56); AST/SGOT 27 U/L (14-36); BILIRUBIN,TOTAL 0.4 mg/dL (0.2-1.3); BLOOD UREA NITROGEN 10 mg/dL (7-21); CALCIUM 9.2 mg/dL (8.4-10.5); CARBON DIOXIDE 23 mmol/L (21-33); CHLORIDE 104 mmol/L (98-107); GFR AFRICAN-AMERICAN > 60; GLUCOSE,RANDOM 209 mg/dL (70-110); POTASSIUM 3.9 mmol/L (3.6-5.0); SODIUM 138 mmol/L (132-148); TOTAL PROTEIN 6.6 g/dL (5.8-8.3)
[2016-12-07 07:38] VITALS: BP 127/69; PULSE 71; TEMP 97.9; O2SAT 97
[2016-12-07] MEDS: Insulin Reg-MEDIUM-Coverage SC SCH (08:15)
[2016-12-07] MEDS: Amoxicillin-Clav 875-125 mg Tab PO SCH (09:12)
--- NOTE | 2016-12-07 11:41 | CP.PCM.DIS ---
Provider - Provider Date of Admission: 12/03/16 19:46 Attending physician: Sharee Vega MD Primary care physician: NO PRIMARY CARE PROVIDER Consults: Podiatry: Juliana ID: Miguel Time Spent in preparation of Discharge (in minutes): 45 Hospital Course - Lab Results Lab Results: Most Recent Lab Values WBC 5.3 10^3/ul (4.5-11.0) 12/07/16 06:00 RBC 4.56 10^6/uL (3.5-6.1) 12/07/16 06:00 Hgb 13.1 g/dL (12.0-16.0) 12/07/16 06:00 Hct 38.9 % (36.0-48.0) 12/07/16 06:00 MCV 85.3 fl (80.0-105.0) 12/07/16 06:00 MCH 28.7 pg (25.0-35.0) 12/07/16 06:00 MCHC 33.7 g/dl (31.0-37.0) 12/07/16 06:00 RDW 13.4 % (11.5-14.5) 12/07/16 06:00 Plt Count 223 10^3/uL (120.0-450.0) 12/07/16 06:00 MPV 11.1 fl (7.0-11.0) H 12/07/16 06:00 Gran % 49.0 % (50.0-68.0) L 12/07/16 06:00 Lymph % (Auto) 35.6 % (22.0-35.0) H 12/07/16 06:00 Barron % (Auto) 8.6 % (1.0-6.0) H 12/07/16 06:00 Eos % (Auto) 6.4 % (1.5-5.0) H 12/07/16 06:00 Baso % (Auto) 0.4 % (0.0-3.0) 12/07/16 06:00 Gran # 2.62 (1.4-6.5) 12/07/16 06:00 Lymph # 1.9 (1.2-3.4) 12/07/16 06:00 Barron # 0.5 (0.1-0.6) 12/07/16 06:00 Eos # 0.3 (0.0-0.7) 12/07/16 06:00 Baso # 0.02 K/mm3 (0.0-2.0) 12/07/16 06:00 ESR 20 mm/hr (0.0-20.0) 12/04/16 08:35 Sodium 138 mmol/L (132-148) 12/07/16 06:00 Potassium 3.9 mmol/L (3.6-5.0) 12/07/16 06:00 Chloride 104 mmol/L (98-107) 12/07/16 06:00 Carbon Dioxide 23 mmol/L (21-33) 12/07/16 06:00 Anion Gap 15 (10-20) 12/07/16 06:00 BUN 10 mg/dL (7-21) 12/07/16 06:00 Creatinine 0.7 mg/dL (0.5-1.4) 12/07/16 06:00 Est GFR ( Amer) > 60 12/07/16 06:00 Est GFR (Non-Af Amer) > 60 12/07/16 06:00 POC Glucose (mg/dL) 243 mg/dL (65-110) H 12/06/16 15:41 Random Glucose 209 mg/dL (70-110) H 12/07/16 06:00 Calcium 9.2 mg/dL (8.4-10.5) 12/07/16 06:00 Total Bilirubin 0.4 mg/dL (0.2-1.3) 12/07/16 06:00 AST 27 U/L (14-36) 12/07/16 06:00 ALT 24 U/L (7-56) 12/07/16 06:00 Alkaline Phosphatase 71 U/L (38-126) 12/07/16 06:00 C-React Prot High Sens 0.98 mg/L (1.00-3.00) L 12/04/16 11:00 Total Protein 6.6 g/dL (5.8-8.3) 12/07/16 06:00 Albumin 3.6 g/dL (3.0-4.8) 12/07/16 06:00 Globulin 3.1 gm/dL 12/07/16 06:00 Albumin/Globulin Ratio 1.2 (1.1-1.8) 12/07/16 06:00 - Hospital Course Hospital Course: Upon Admission: 81yo F with PMHx of DM here for evaluation of Right medial malleolus skin non- healing ulcer. Patient reports that it has been present for the past 4-5 months. She was afebrile with no leukocytosis for the entire hospital stay. Lower extremity arterial duplex with no evidence of abnormal ABIs to suggest PVD. Lower extremity doppler study negative for DVT. Ankle XR with no definite osteomyelitis, does show evidence of diffuse osteopenia. MRI - low likelihood for osteomyelitis. ID consulted and patient was switched over to PO Abx therapy. Podiatry consulted. Discussed case with on-call dry house tender who was covering Dr. Andrews who states that she can be evaluated at his clinic on Thursday (the next day). Patient was deemed stable for discharge on PO Augmentin and Doxy. All findings and plan was discussed with patient and family. All questions and concerns addressed. Patient to follow up with podiatry and [facility] clinic. 1. Diabetic non-healing R medial malleolus skin ulcer. Continue PO Augmentin and PO Doxy. F/U with Podiatry 2. Hx of DM. Continue home insulin regimen Upon Discharge: 1. Follow up with [facility] within one week. Call for appointment 2. Follow up with Podiatry, Dr. Andrews, in his Clinic on Thursday. Call for appointment and directions. 3. Take prescribed antibiotics as directed to completion 4. Resume home insulin coverage. 5. Return to the ER with any concerning symptoms. New Prescriptions: 1. Augmentin 875mg PO q12 #12/0 2. Doxycycline 100mg PO q12 #12/0 Discharge Exam - Head Exam Head Exam: ATRAUMATIC, NORMAL INSPECTION, NORMOCEPHALIC - Eye Exam Eye Exam: EOMI, Normal appearance - ENT Exam ENT Exam: Mucous Membranes Moist - Neck Exam Neck exam: Full Rom - Respiratory Exam Respiratory Exam: Clear to PA & Lateral, NORMAL BREATHING PATTERN, UNREMARKABLE. absent: Decreased Breath Sounds, Rales, Rhonchi, Wheezes, Respiratory Distress - Cardiovascular Exam Cardiovascular Exam: RRR, +S1, +S2. absent: JVD - GI/Abdominal Exam GI & Abdominal Exam: Soft. absent: Distended, Firm, Guarding, Rebound, Rigid, Tenderness - Extremities Exam Additional comments: right medial malleolus: Diabetic ulcer. No active drainage. Pulses palpable bilaterally - Neurological Exam Neurological exam: Alert, Normal Gait, Oriented x3 - Psychiatric Exam Psychiatric exam: Normal Affect, Normal Mood - Skin Skin Exam: Normal Color, Warm Discharge Plan - Discharge Medications Prescriptions: Amoxicillin/Clavulanate [Augmentin 875 MG-125 MG Tab] 1 tab PO Q12 #12 tab Doxycycline Hyclate [Doryx] 100 mg PO Q12 #12 cap - Follow Up Plan Condition: STABLE Disposition: HOME/ ROUTINE Instructions: Cellulitis (DC), Cellulitis (GEN) Additional Instructions: 1. Follow up with [facility] within one week. Call for appointment 2. Follow up with Podiatry, Dr. Andrews, in his Clinic on Thursday morning. Call for appointment and directions. 3. Take prescribed antibiotics as directed to completion 4. Resume home insulin coverage. 5. Return to the ER with any concerning symptoms. New Prescriptions: 1. Augmentin 875mg PO q12 #12/0 2. Doxycycline 100mg PO q12 #12/0 Referrals: [facility] at [facility] [Outside] PCP,NO [Primary Care Provider] - Ralph Andrews DPM [Staff Provider] -
--- NOTE | 2016-12-07 13:03 | PN ---
DATE: 12/07/2016 SUBJECTIVE: The patient is in bed, in no acute distress and nontoxic. PHYSICAL EXAMINATION VITAL SIGNS: Temperature is 98, blood pressure is 120/60, respiratory rate of 16. HEENT: Examination of the HEENT is unremarkable. NECK: Supple. LUNGS: Decreased breath sounds. HEART: Normal S1 and S2. ABDOMEN: Soft. LABORATORY DATA: Reveals a white count of 5.3, hemoglobin of 13, platelets of 223. BUN of 10, creatinine of 0.7. Microbiology reveals blood cultures are negative and right ankle cultures of no growth and C-reactive protein is 0.98. X-ray is noted. MRI is also reviewed to be negative for osteomyelitis. Dr. Vega's note is reviewed from yesterday. ASSESSMENT AND PLAN: This is an 81-year-old female with right medial malleolar infected or diabetic ulcer, negative MRI for osteomyelitis, negative cultures, negative ankle cultures, was treated with Unasyn and vancomycin, now completing therapy with p.o. doxycycline and p.o. Augmentin. Robles Rivera MD [facility] # [id number]
== END 2016-12-07 14:41 | disposition home or self-care (01) | DRG 638 ==
LOC: ED 16:28 → ERH 19:46 → 5RNO 21:34
PROVIDERS: ADMIT Internal Medicine; ATTEND Internal Medicine
DX: E11.622 Type 2 diabetes mellitus with other skin ulcer (principal); L97.319 Non-pressure chronic ulcer of right ankle with unspecified severity; E11.628 Type 2 diabetes mellitus with other skin complications; L03.115 Cellulitis of right lower limb; I10 Essential (primary) hypertension; Z79.4 Long term (current) use of insulin

== ENCOUNTER 2018-01-27 11:57 | Emergency (ER) | payer OTHER ==
[2018-01-27 11:58] VITALS: BMI 18.8
[2018-01-27 12:06] VITALS: RESP 18; TEMP 98.6
[2018-01-27] MEDS ORDERED: Insulin Regular 1 UNITS/0.01 ML ML IVP STA ×2 (12:18→12:44)
--- NOTE | 2018-01-27 12:43 | ED PDOC ---
Arrival/HPI - General Chief Complaint: High Blood Sugar Time Seen by Provider: 01/27/18 12:09 Historian: Patient, Family - History of Present Illness Narrative History of Present Illness (Text): 01/27/18 12:41 An 82 year old female, whose past medical history includes diabetes, is brought into the emergency department by family for a complaint of high blood glucose levels. The patient's granddaughter states that she routinely checked her blood sugar at around 10:45 AM. The patient's blood sugar was 532. When asked, the patient states that she feels well. Patient takes Levemir every night after dinner for her diabetes. The patient denies fevers, chills, weakness, headache, dizziness, cough, sore throat, chest pain, shortness of breath, dyspena on exertion, abdominal pain, nausea, vomiting, diarrhea, neck/ back pain, urinary/ bowel symptoms, trauma/ injury, or any other complaints. Time/Duration: Other (This morning) Symptom Onset: Sudden Symptom Course: Unchanged Activities at Onset: Rest, Light Context: Home Past Medical History - Provider Review Nursing Documentation Reviewed: Yes - Infectious Disease Hx of Infectious Diseases: None - Tetanus Immunization Tetanus Immunization: Up to Date - Reproductive Menopause: Yes - Cardiac Hx Hypertension: Yes - Pulmonary Hx Respiratory Disorders: No - Neurological Hx Neurological Disorder: No - HEENT Hx HEENT Disorder: No - Renal Hx Renal Disorder: No - Endocrine/Metabolic Hx Endocrine Disorders: Yes Hx Diabetes Mellitus Type 2: Yes - Hematological/Oncological Hx Blood Disorders: No - Integumentary Hx Melanoma: No - Musculoskeletal/Rheumatological Hx Rheumatoid Arthritis: No - Gastrointestinal Hx Fatty Liver Disease: No - Genitourinary/Gynecological Hx Bladder Cancer: No - Psychiatric Hx Depression: No Hx Emotional Abuse: No Hx Physical Abuse: No Hx Substance Use: No - Anesthesia Hx Anesthesia: No - Suicidal Assessment Feels Threatened In Home Enviroment: No Family/Social History - Physician Review Nursing Documentation Reviewed: Yes Family/Social History: No Known Family HX Smoking Status: Never Smoked Hx Alcohol Use: No Hx Substance Use: No Hx Substance Use Treatment: No Allergies/Home Meds Allergies/Adverse Reactions: Allergies No Known Allergies Allergy (Verified 12/03/16 16:43) Home Medications: Home Meds Medication Instructions Recorded Confirmed Insulin Detemir [Levemir] 12 units SC HS 12/03/16 01/27/18 Review of Systems - Physician Review All systems were reviewed & negative as marked: Yes - Review of Systems Constitutional: absent: Fevers ENT: absent: Sore Throat Respiratory: absent: SOB, Cough Cardiovascular: absent: Chest Pain, BARRAZA Gastrointestinal: absent: Abdominal Pain, Stool Changes, Diarrhea, Nausea, Vomiting Genitourinary Female: absent: Urine Output Changes Musculoskeletal: absent: Back Pain, Neck Pain Neurological: absent: Headache, Dizziness Endocrine: Other (High blood glucose levels.) Physical Exam - Physical Exam Narrative Physical Exam (Text): 01/27/18 12:44 Constitutional: No acute distress. Head: Normocephalic. Atraumatic. Eyes: PERRL. ENT: Moist mucous membranes. Neck: Supple. Cardiovascular: Regular rate. Chest: No tenderness. Respiratory: Clear to auscultation bilaterally. GI: Soft. Nontender. Nondistended. Back: No CVA tenderness. Musculoskeletal: No tenderness or swelling of extremities. Skin: No rash. Neurologic: Alert, no focal deficit Vital Signs Reviewed: Yes Vital Signs Temp Pulse Resp BP Pulse Ox 01/27/18 12:13 98.6 F 82 18 163/85 H 99 01/27/18 12:01 98.6 F 82 18 163/85 H 99 Temperature: Afebrile Blood Pressure: Hypertensive Pulse: Regular Respiratory Rate: Normal Appearance: Positive for: Well-Appearing, Non-Toxic, Comfortable Pain Distress: None Mental Status: Positive for: Alert and Oriented X 3 Finger Stick Blood Glucose: 309 Medical Decision Making ED Course and Treatment: 01/27/18 12:44 Impression: An 82 year old female presents to the emergency department for further evaluation of high blood glucose levels. Plan: -- Labs -- Urinalysis -- HumuLIN R -- Reassess and disposition Prior Visits: Notes and results from previous visits were reviewed. Progress Notes: 01/27/18 14:32 blood glucose improved, no s/s of dka, will empirically tx fo uti. - Lab Interpretations I have reviewed the lab results: Yes - Medication Orders Current Medication Orders: Discontinued Medications Insulin Human Regular (Humulin R) 10 units IVP STAT STA Stop: 01/27/18 12:19 - Scribe Statement The provider has reviewed the documentation as recorded by the Moriah Sood Provider Scribe Attestation: All medical record entries made by the Jassonibe were at my direction and personally dictated by me. I have reviewed the chart and agree that the record accurately reflects my personal performance of the history, physical exam, medical decision making, and the department course for this patient. I have also personally directed, reviewed, and agree with the discharge instructions and disposition. Disposition/Present on Arrival - Present on Arrival Any Indicators Present on Arrival: No History of DVT/PE: No History of Uncontrolled Diabetes: No Urinary Catheter: No History of Decub. Ulcer: No History Surgical Site Infection Following: None - Disposition Have Diagnosis and Disposition been Completed?: Yes Diagnosis: Hyperglycemia due to type 2 diabetes mellitus, UTI (urinary tract infection) Disposition: HOME/ ROUTINE Disposition Time: 14:33 Patient Plan: Discharge Condition: STABLE Discharge Instructions (ExitCare): Urinary Tract Infections in Adults, Diabetes in Older Adults Print Language: [place] Additional Instructions: Follow up with your primary care doctor as soon as possible. SAVANNA BARAHONA, thank you for letting us take care of you today. Your provider was Dr.Lamont Foster and you were treated for HIGH BLOOD SUGAR. The emergency medical care you received today was directed at your acute symptoms. If you were prescribed any medication, please fill it and take as directed. It may take several days for your symptoms to resolve. Return to the Emergency Department if your symptoms worsen, do not improve, or if you have any other problems. Please contact your doctor or call one of the physicians/clinics you have been referred to that are listed on the Patient Visit Information form that is included in your discharge packet. Bring any paperwork you were given at discharge with you along with any medications you are taking to your follow up visit. Our treatment cannot replace ongoing medical care by a primary care provider outside of the emergency department. Thank you for allowing the [facility] team to be part of your care today. If you had an X-Ray or CT scan: A Radiologist will review the ED reading if any change in treatment is needed we will contact you. If you had a blood, urine, or wound culture: It will take several days for the results, if any change in treatment is needed we will contact you. If you had an STI test: It will take 48 hours for the results. Please call after 1 week if you have not heard back. Prescriptions: Insulin Detemir [Levemir] 100 unit SC DAILY 30 Days unit Nitrofurantoin Macrocrystals [Macrobid] 100 mg PO BID 5 Days #10 cap Forms: [facility] (Maltese)
[2018-01-27 13:29] LABS: BLOOD UREA NITROGEN 14 mg/dL (7-21); CALCIUM 10.5 mg/dL (8.4-10.5); GFR NON-AFRICAN AMERICAN > 60
[2018-01-27 13:38] LABS: URINE BILIRUBIN NEGATIVE (NEGATIVE); URINE BLOOD LARGE (NEGATIVE); URINE GLUCOSE (UA) >=1000 mg/dL (NEGATIVE); URINE LEUKOCYTE ESTERASE SMALL Leu/uL (NEGATIVE); URINE PROTEIN NEGATIVE mg/dL (<30 mg/dL); URINE UROBILINOGEN 0.2 E.U./dL (<1 E.U./dL)
[2018-01-27 13:40] LABS: URINE APPEARANCE TURBID (CLEAR); URINE COLOR YELLOW (YELLOW)
[2018-01-27 13:43] LABS: URINE WBC 25 - 30 /hpf (0-6)
[2018-01-27 13:44] LABS: URINE BACTERIA FEW (NEG)
[2018-01-27 14:40] VITALS: BP 152/70; PULSE 71; O2SAT 100
== END 2018-01-27 14:48 | disposition home or self-care (01) ==
LOC: ED 11:57
DX: E11.65 Type 2 diabetes mellitus with hyperglycemia (principal); N39.0 Urinary tract infection, site not specified; I10 Essential (primary) hypertension